=== PATIENT | female | born 1950 | race Caucasian/White ===

== ENCOUNTER → 2016-04-18 | Day surgery (SDC) | payer MEDICARE, BC ==
[~2016-04-18] VITALS: Ht 170.2 cm; Wt 52.2 kg
[2016-04-18] VITALS (9 sets, daily range): BP systolic 121–135; BP diastolic 59–74
[~2016-04-18] MED LIST: Bacitracin Oint 15gm Tube TOPIC ONE; Cocaine 4% Vial TOPIC ONE; Dexamethasone 4mg/ml vial ONE; Glycopyrrolate 0.2mg/ml 1ml Vial ONE; Hydromorphone 0.5mg/0.5ml inj IVP PRN; Kenalog-40 1ml Vial ONE; Lidocaine 1% 10mg/ml/EPI 0.01mg/ml 50ml INJ ONE; Lidocaine 1% 10mg/ml/Epi 0.005mg/ml 30ml vial INJ ONE; Midazolam 2mg/2ml Inj ONE; NS Irrig 1000ml ONE; Neostigmine 1mg/ml 10ml Inj ONE; Oxymetazoline 0.05% Na Spray 30ml NASAL ONE; Propofol 10mg/ml 100ml btl IV ONE; SYNTHROID75 MCG ORAL; Sterile Water Irrig 1000ml IRRIG ONE; Succinylcholine 20mg/ml 10ml vial ONE; TRAZODONE HCL150 MG ORAL; Zemuron 50mg/5ml Inj IV ONE; ceFAZolin sod 1 GM in NS 55 ML IVPB ONE; fentaNYL 100 mcg/2 mL IV ONE
--- NOTE | 2016-04-18 13:22 | Anethesia Preoperative Eval ---
Anesthesia Pre-op PMH/ROS General Date of Evaluation: Apr 18, 2016 Time of Evaluation: 12:10 Anesthesiologist: BREANN ASA Score: ASA 1 Mallampati Score Class I : Soft palate, uvula, fauces, pillars visible Class II: Soft palate, uvula, fauces visible Class III: Soft palate, base of uvula visible Class IV: Only hard plate visible Mallampati Classification: Class I Surgeon: JAVED Diagnosis: SINUSITIS Surgical Procedure: SINUS SURGERY Anesthesia History: none Family History: no anesthesia problems Allergies: Coded Allergies: PIROXICAM (Verified Allergy, Unknown, 04/17/16) Medications: see eMAR Past Medical History Cardiovascular: Denies: CAD, HTN, ND, arrhythmia, other, valve dz Pulmonary: Denies: COPD, GRABIEL, asthma, other Gastrointestinal/Genitourinary: Denies: CRI, ESRD, GERD, other Neurologic/Psychiatric: Denies: CVA, TIA, dementia, depression/anxiety, other Endocrine: Denies: DM, hypothyroidism, other, steroids HEENT: Denies: EKLUTNA (L), EKLUTNA (R), cataract (L), cataract (R), glaucoma, other Hematology/Immune: Denies: DVT, anemia, bleeding disorder, other Musculoskeletal/Integumentary: Denies: DDD, DJD, OA, RA, edema, other PSxH Narrative: GET X 1,NASAL SURGERY Anesthesia Pre-op Phys. Exam Physician Exam Last Vital Signs Date Time Temp Pulse Resp B/P Pulse Ox O2 Delivery O2 Flow Rate FiO2 04/18/16 09:32 97.8 58 18 131/74 100 Room Air Constitutional: NAD Neurologic: CN 2-12 intact Cardiovascular: RRR Respiratory: CTA Gastrointestinal: S/NT/ND Airway Exam Mallampati Score: Class I MO: full ROM: full Teeth: intact Dentures: no lower, no upper Anesthesia Pre-op A/P Risk Assessment & Plan Assessment: ASA1 Plan: GET Pre-Antibiotics Drug: ANCEF Given Within 1 Hr of Incision: Yes Time Given: 12:20 NOELLE CRAIN M.D. Apr 18, 2016 13:22
--- NOTE | 2016-04-18 13:27 | Immediate Post-Op Evaluation ---
Immediate Post-Op Evalulation Immediate Post-Op Evalulation Procedure: SINUS SURGERY Date of Evaluation: Apr 18, 2016 IV Fluids: 1500 Blood Products: 0 Estimated Blood Loss: MIN Urinary Output: 0 Pain Score (1-10): 1 Nausea: No Vomiting: No Patient Status: awake, patent, none Hydration Status: adequate Drug: ANCEF Given Within 1 Hr of Incision: Yes Time Given: 12:20 NOELLE CRAIN M.D. Apr 18, 2016 13:27
--- NOTE | 2016-04-18 13:28 | 48 Hour Post Anesthesia Eval ---
Post Anesthesia Evaluation Procedure: SINUS SURGERY Date of Evaluation: Apr 18, 2016 Time of Evaluation: 16:00 Blood Pressure Systolic: 123 0: 77 Pulse Rate: 68 Respiratory Rate: 15 Temperature (Fahrenheit): 98 O2 Sat by Pulse Oximetry: 99 Airway: patent Nausea: No Vomiting: No Pain Intensity: 1 Hydration Status: adequate Cardiopulmonary Status: WNL Mental Status/LOC: patient returned to baseline Post-Anesthesia Complications: O Follow-up care needed: ready to discharge NOELLE CRAIN M.D. Apr 18, 2016 13:28
--- NOTE | 2016-04-18 16:21 | Pre-Procedure Note/Attestation ---
Pre-Procedure Note/Attestation Complete Prior to Procedure Planned Procedure: not applicable Procedure Narrative: septoplasty, bilateral inferior turbinectomies with intramural coagulation, nasal reconstruction with irradiated bank cartilage Indications for Procedure Pre-Operative Diagnosis: septal deviation, bilateral hypertrophied inferior turbinates, obstructing nasal deformities Attestation I attest that I discussed the nature of the procedure; its benefits; risks and complications; and alternatives (and the risks and benefits of such alternatives ), prior to the procedure, with the patient (or the patient's legal signs and displays sales representative). I attest that, if there was a reasonable possibility of needing a blood transfusion, the patient (or the patient's legal signs and displays sales representative) was given the [place] [employer] [facility] standardized written summary, pursuant to the [place] Blood Safety Act ([place] Health and Safety Code # 1645, as amended). I attest that I re-evaluated the patient just prior to the surgery and that there has been no change in the patient's H&P, except as documented below: DAMION BURT Apr 18, 2016 16:21
--- NOTE | 2016-04-18 16:25 | Brief Operative Note ---
Immediate Post Operative Note Operative Note Pre-op Diagnosis: septal deviation, bilateral hypertrophied inferior turbinates, obstructing nasal deformities Procedure: septoplasty, bilateral inferior turbinectomies, nasal reconstruction with right outer valve advancement flap and irradiated bank cartilage columella strut Post-op Diagnosis: same as pre-op Surgeon: Aditya Burt M.D. Anesthesiologist: Octavio Asher M.D. Anesthesia: MAC Specimen: none Complications: none Condition: stable Estimated Blood Loss: minimal Drains: none Implant(s) used?: Yes - irradiated bank rib ADITYA BURT Apr 18, 2016 16:25
--- NOTE | 2016-04-19 00:38 | Operative Note - Dictated ---
DATE OF OPERATION: 04/18/2016 NOTE: POOR VOICE QUALITY SURGEON: Aditya Allen M.D. ANESTHESIOLOGIST: Octavio Sparks M.D. ANESTHESIA: MAC. PREOPERATIVE DIAGNOSES: 1. Septal deviation. 2. Bilateral hypertrophied inferior turbinates. 3. Obstructing nasal deformity. POSTOPERATIVE DIAGNOSES: 1. Septal deviation. 2. Bilateral hypertrophied inferior turbinates. 3. Obstructing nasal deformity. PROCEDURES: 1. Septoplasty. 2. Bilateral inferior turbinectomies with intramural coagulation. 3. Repair of obstructing nasal deformity with bank rib cartilage INDICATIONS FOR SURGERY: The patient is a 66-year-old female, who has undergone three nasal surgeries at [facility] with increasing nasal obstruction. She has been placed on multiple medications without improvement. The examination revealed an extremely widened columella and right greater than left inferior septal region. The columella itself was found to be severely retracted contributing to the loss of nasal tip support, which is increasing the patient's bilateral nasal airway obstruction. Further examination revealed a scar across the mid bony dorsum with loss of color, very loose skin, and irregularities over the bony dorsum. The patient is now being brought to the operating room for surgical repair to improve her nasal airway. Procedure And Findings: The patient was brought to the operating room while premedicated and have received preoperative antibiotics. The patient was then placed in supine position on the operating table. After the patient underwent endotracheal intubation, she was given intravenous sedation. The intravenous sedation was followed very quickly by intravenous piggyback of Ancef antibiotic. The intranasal cavity was then sprayed with one 0.25% Sree-Synephrine. Sterile Q-tips saturated with Betadine used to sterilize the intranasal area. Approximately 20 mL of 1% Xylocaine with 1:100,000 epinephrine were used to inject the the nasal and septal frameworks. Of note, extensive scar tissue was encountered throughout the soft tissues of the nose as well as the columella and lower septal regions bilaterally. Less than 200 mg of cocaine was then used as intranasal packing. The patient was prepped and draped in the usual sterile fashion. After a suitable period of vasoconstriction, the packing was removed. Examination revealed the patient to have very narrow nasal passage ways. With a #15 blade, an incision made along the inferior aspect of what appeared to be the inferior edge of the septum. The inferior edge of the septum was not possible to identify because of the thickened scar tissue. The back of a #15 blade were also used to crosshatch the incision site between the upper and lower lateral cartilage. With a #15 blade, the incision was made in between the upper and lower lateral cartilages and carried up to the septal angle and then along the inferior septal region deepening the previous incision site. Extensive undermining was performed over the nasal framework encountering significant scar tissue, which which caused the surgery to proceed meticulously to release the tissue. The overlying skin was very thin especially over the bony dorsum and paranasal bony region. Eventually, the skin was able to be from the underlying cartilage and bony framework intact. Examination revealed a left-sided bony protrusion pushing up the overlying skin. This was taken down sharply and pieces of bone were then removed from the field of operation. Re-examination now revealed the bony irregularities to be smooth and the skin to lie correctly (the skin was corrugated). All blood was suctioned from the area and my attention was turned to the intranasal region. A right inferior septal incision was then again extended deeply. The inferior septum could not be delineated and so the dissection proceeded superiorly until the septum could be identified. The septum was located superiorly with the remaining part of the columella and membranous septum encased in scar tissue. Much of the patient's obstruction came from the extensive scar tissue. The scarred mucoperichondrium was elevated off the remaining cartilage using sharp dissection revealing a right septal deviation. The septal cartilage deviation was crosshatched and mobilized into a midline position for breathing All bleeding controlled with cautery. The thickened scarred mucoperichondirum was elevated from the left inferior septal cartilage. The scarred mucoperichondrium flaps were thinned. A piece of bank rib cartilage was then brought into field of operation. . The bank cartilage was cut to specifications to fit the columella and placed in Betadine. Sterile Q-tips saturated in Betadine were used to sterilize the right side of the columella. The columella had been previously injected with 1% xylocaine with 1;100,000 epinephrine again encountering significant scar tissue. With a #15 blade, an incision was made just inferior to the medial ashish. A Kalia's scissors was used to create a pocket for the bank cartilage graft. This extended down to just above the anterior nasal spine and to the nasal tip. Extensive scar tissue was encountered, which make the dissection difficult, but eventually a good pocket was created. All bleeding was controlled with pressure. The columella pocket was rinsed with Betadine solution. A pre-harvested graft was then brought into the field of operation and placed in the columella pocket. The columella strut was found to be in good position with stabilization of the columella and resolution of the superior retraction of the columella improving the patient's nasal inflow tract. The area was then rinsed with Betadine solution and the incision was closed on the right side with interrupted sutures of 5-0 plain. There was no incision made on the left side of the columella. Re-examination still revealed a significant amount of extra thickened tissue along the posterior aspect and mid aspect of the right inferior pre-septal region. The redundant tissue was sharply resected . The incision was then closed with interrupted sutures of 4-0 plain. A similar procedure was performed on the left side removing only a slight amount of skin posteriorly. This reduced the amount of intranasal obstruction. A large 4-0 plain suture was then used to splint the septum in two places, which also further collapsed the area of obstruction All blood was suctioned from the nose and nasopharynx area. An incision was made in the undersurface of both the inferior turbinates and mucosa stripped from the underlying bone. The inferior turbinates were outfractured. Examination revealed the patient to have an improved bilateral nasal airway. A 4-0 plain was used to close between the incisions previously crosshatched. A 4-0 plain was also used to close other incisions. Re-examination now revealed minimal bleeding and a much improved airway with approximation of the skin. All fluid was expressed from the nose. An external dressing consisting of paper adhesive tape and casts were then secured in place and the procedure was terminated. The patient tolerated the procedure well and left the operating room in satisfactory condition. Estimated blood loss was 30 mL. Sponge and needle counts were correct. Aditya Allen M.D. DR: BIB JOB#: [id number] CC: BIA
[2016-05-01 08:13] VITALS: BP 123/77
== END | disposition home or self-care (01) ==
LOC: SUR 09:05
DX: J34.2 Deviated nasal septum (principal); J34.3 Hypertrophy of nasal turbinates; M95.0 Acquired deformity of nose; I25.10 Atherosclerotic heart disease of native coronary artery without angina pectoris; E11.9 Type 2 diabetes mellitus without complications; E06.3 Autoimmune thyroiditis; E03.8 Other specified hypothyroidism; F32.9 Major depressive disorder, single episode, unspecified; F41.9 Anxiety disorder, unspecified; I50.9 Heart failure, unspecified; G47.33 Obstructive sleep apnea (adult) (pediatric); Z86.73 Personal history of transient ischemic attack (TIA), and cerebral infarction without residual deficits; I49.9 Cardiac arrhythmia, unspecified; Z86.19 Personal history of other infectious and parasitic diseases; Z87.891 Personal history of nicotine dependence; Z91.09 Other allergy status, other than to drugs and biological substances
CPT/HCPCS: 30420; 30802; J0330; J0690; J1100; J1170; J2250; J2405; J2704; J2710; J3010; 94003; 94150